=== PATIENT | female | born 1955 | race Caucasian/White ===

== ENCOUNTER 2022-02-17 07:25 | Outpatient (CLI) | payer MEDICARE, OTHER, SELFPAY ==
--- NOTE | 2022-02-17 08:00 | CRLHL7_ITS ---
For Patients: As a result of the Century Cures Act, medical imaging exams and procedure reports are released immediately into your electronic medical record. You may view this report before your referring provider. If you have questions, please contact your health care provider. Indication: FOLLOW UP LUNG CANCER Technique: Postcontrast CT chest, abdomen and pelvis. Oral water. 95 cc Isovue 370 intravenous contrast. Please note that all CT scans at this facility use dose modulation, iterative reconstruction, and/or weight-based dosing when appropriate to reduce radiation dose to as low as reasonably achievable. Comparison: CT chest 07/22/2021, 04/22/2021. CT chest, abdomen pelvis 06/04/2020. CT PET 02/14/2021 Findings: In the chest, chronic linear subsegmental scarring within the right upper lobe. Stable nodular density within the left lung apex. Changes of COPD/emphysema. Mild dependent atelectasis/scarring. No pleural effusion. No intrinsic osseous lesion. Thoracic inlet is normal. No adenopathy. Mild multilevel degenerative changes. No fracture. In the abdomen, diffuse fatty infiltration of the liver is present. Focus of decreased attenuation within the liver adjacent to the falciform ligament is present and, in retrospect, unchanged compared to prior studies, representing focal fat deposition. No suspicious intrahepatic mass. Stable 1 cm splenic cyst anteriorly. Adrenal glands normal. The pancreas is normal. Gallbladder is unremarkable. No solid renal mass or hydronephrosis. Vascular calcifications are present. Small hiatal hernia. No aortic aneurysm. No retroperitoneal or mesenteric adenopathy. In the pelvis, the bladder is normal. Chronic sigmoid diverticulosis. No bowel obstruction or free air. No free fluid or abscess. Normal appendix. No pelvic or inguinal adenopathy. The ureters are within normal limits. Degenerative disc disease at L5-S1. No fracture. No suspicious osseous lesion. Impression: Stable exam. No change from prior studies. No evidence of metastatic disease. Please note that all CT scans at this facility use dose modulation, iterative reconstruction, and/or weight-based dosing when appropriate to reduce radiation dose to as low as reasonably achievable. Dictated by Eddie Lira MD @ 02/17/2022 11:15:47 AM (Electronically Signed)
[2022-02-17 08:01] LABS: Basophils Percent Auto 0.5 % (0.0-3.0); Eosinophils Percent Auto 2.1 % (0.0-7.0); Hematocrit 41.1 % (33.0-51.0); Hemoglobin* 13.8 gm/dL (12.0-16.0); Immature Granulocytes Pct Auto 0.2 %; Lymphocytes Percent Auto 27.3 % (20-44); Mean Corpuscular HGB Conc 34 gm/dL (32-36); Mean Corpuscular Hemoglobin 32 pg (26-34); Mean Corpuscular Volume 94 fL (80-100); Monocytes Percent Auto 8.3 % (0.0-11.0); Neutrophils Percent Auto 61.6 % (42.0-72.0); Platelet Count* 264 K/uL (140-440); RDW Coefficient of Variation % 12.7 % (11.5-15.5); Red Blood Count 4.38 m/uL (4.00-5.20); White Blood Count* 4.22 K/uL (4.50-11.00)
[2022-02-17 08:03] LABS: Slide Review Reflex No
[2022-02-17 08:11] LABS: Chloride* 107 mmol/L (96-114)
[2022-02-17 08:12] LABS: Albumin* 4.6 g/dL (3.3-5.0); Sodium* 140 mmol/L (135-149)
[2022-02-17 08:13] LABS: Potassium* 4.6 mmol/L (3.6-5.1)
[2022-02-17 08:15] LABS: Alanine Aminotransferase* 34 U/L (4-35); Alkaline Phosphatase* 106 U/L (40-150); Aspartate Amino Transferase* 26 U/L (12-35); Bilirubin Total* 0.8 mg/dL (0.1-1.5); Blood Urea Nitrogen* 21 mg/dL (7-30); Carbon Dioxide* 25 mmol/L (20-32); Creatinine* 0.8 mg/dL (0.5-1.5); Estimated Glomerular Filt Rate 82 ml/min; Glucose* 102 mg/dL (60-115); Total Protein* 7.5 g/dL (6.0-8.3)
[2022-02-17 08:16] LABS: Calcium* 9.9 mg/dL (8.4-10.6)
== END 2022-02-17 07:26 | disposition home or self-care (01) ==
LOC: CT 07:29
PROVIDERS: Clinical Nurse Specialist; PCP Family Medicine; Visit Provider Internal Medicine Hematology & Oncology
DX: C34.10 Malignant neoplasm of upper lobe, unspecified bronchus or lung (principal)
CPT/HCPCS: 36415; 71260; 74177; 80053; 85025; Q9967

== ENCOUNTER 2022-03-03 08:10 | Outpatient (RCR) | payer MEDICARE, OTHER, SELFPAY | END 2022-08-30 23:59 | disposition home or self-care (01) | LOC: CCIC 08:10 | PROVIDERS: PCP Family Medicine; Visit Provider Physician Assistant | DX: C34.11 Malignant neoplasm of upper lobe, right bronchus or lung (principal); E03.9 Hypothyroidism, unspecified; R06.09 Other forms of dyspnea | CPT/HCPCS: 99212; 99214 ==

== ENCOUNTER 2022-09-22 07:11 | Outpatient (CLI) | payer MEDICARE, OTHER, SELFPAY ==
[2022-09-22 07:50] LABS: Creatinine* 0.9 mg/dL (0.5-1.5); Estimated Glomerular Filt Rate 71 ml/min
--- NOTE | 2022-09-22 08:00 | CRLHL7_ITS ---
For Patients: As a result of the Century Cures Act, medical imaging exams and procedure reports are released immediately into your electronic medical record. You may view this report before your referring provider. If you have questions, please contact your health care provider. Indication : monitor stage IIIA NSCLC, MALIGNANT NEOPLASM OF UPPER LOBE OF RT LUNG Technique: Postcontrast CT chest, abdomen and pelvis. 96 cc Isovue 370 intravenous contrast. Please note that all CT scans at this facility use dose modulation, iterative reconstruction, and/or weight-based dosing when appropriate to reduce radiation dose to as low as reasonably achievable. Comparison: 02/17/2022 Findings: In the chest, postop changes to the right upper lung again noted. Stable nodular density within the left lung apex. COPD/emphysema. Dependent atelectasis. No pleural effusion or pulmonary edema. No infiltrate. No mediastinal, hilar or axillary adenopathy. Atherosclerotic disease. Curvature of the spine. No fracture. In the abdomen, there is a stable benign focus of hypodensity posterior segment right hepatic lobe corresponding to known intrahepatic hemangioma. Focal fat deposition within the liver adjacent to the falciform ligament is present. Diffuse hepatic steatosis also noted. No calcified gallstones. No biliary obstruction. Pancreas is normal. Normal spleen. Adrenal glands are unremarkable. Extrarenal pelvis on the right. No solid renal mass or hydronephrosis. Atherosclerotic changes. No aneurysm. No retroperitoneal or mesenteric adenopathy. Small hiatal hernia is present. In the pelvis, the bladder is normal. Sigmoid diverticulosis is present. No bowel obstruction or free air. No free fluid. Appendix normal. No pelvic or inguinal adenopathy. Degenerative disc disease L5-S1. No fracture. No intrinsic osseous lesion. Impression: Chronic and unchanged nodular density in the left lung apex and intrahepatic hemangioma. No evidence of metastatic disease. Please note that all CT scans at this facility use dose modulation, iterative reconstruction, and/or weight-based dosing when appropriate to reduce radiation dose to as low as reasonably achievable. Dictated by Eddie Lira MD @ 09/22/2022 9:19:00 AM (Electronically Signed)
== END 2022-09-22 07:12 | disposition home or self-care (01) ==
PROVIDERS: PCP Family Medicine; Visit Provider Physician Assistant
DX: C34.11 Malignant neoplasm of upper lobe, right bronchus or lung (principal)
CPT/HCPCS: 36415; 71260; 74177; 82565; Q9967

== ENCOUNTER 2022-09-23 08:04 | Outpatient (RCR) | payer MEDICARE, OTHER, SELFPAY | END 2023-03-22 23:59 | disposition home or self-care (01) | LOC: CCIC 08:04 | PROVIDERS: PCP Family Medicine; Referring Provider Family Medicine; Visit Provider Internal Medicine Hematology & Oncology | DX: C34.11 Malignant neoplasm of upper lobe, right bronchus or lung (principal); E03.9 Hypothyroidism, unspecified; R06.09 Other forms of dyspnea | CPT/HCPCS: 99212; 99213; 99214 ==

== ENCOUNTER 2023-04-14 08:30 | Outpatient (RCR) | payer MEDICARE, OTHER, SELFPAY ==
[2023-04-13 07:49] LABS: Creatinine* 0.8 mg/dL (0.5-1.5); Estimated Glomerular Filt Rate 82 ml/min
[2023-04-13 08:44] LABS: Albumin* 4.4 g/dL (3.3-5.0); Chloride* 104 mmol/L (96-114); Potassium* 4.8 mmol/L (3.6-5.1); Sodium* 138 mmol/L (135-149)
[2023-04-13 08:47] LABS: Alanine Aminotransferase* 28 U/L (4-35); Alkaline Phosphatase* 91 U/L (40-150); Anion Gap 9 mEq/L (7-15); Aspartate Amino Transferase* 24 U/L (12-35); Bilirubin Total* 0.8 mg/dL (0.1-1.5); Blood Urea Nitrogen* 28 mg/dL (7-30); Carbon Dioxide* 25 mmol/L (20-32); Creatinine* 0.8 mg/dL (0.5-1.5); Estimated Glomerular Filt Rate 82 ml/min; Glucose* 119 mg/dL (60-115); Total Protein* 7.6 g/dL (6.0-8.3)
[2023-04-13 08:48] LABS: Calcium* 9.9 mg/dL (8.4-10.6)
[2023-04-14 08:20] LABS: Basophils Absolute Auto 0.02 K/uL (0.00-0.30); Basophils Percent Auto 0.4 % (0.0-3.0); Eosinophils Absolute Auto 0.12 K/uL (0.00-0.50); Eosinophils Percent Auto 2.6 % (0.0-7.0); Hematocrit 40.1 % (33.0-51.0); Hemoglobin* 13.2 gm/dL (12.0-16.0); Immature Granulocytes Abs Auto 0.01 K/uL (0.00-0.30); Immature Granulocytes Pct Auto 0.2 %; Lymphocytes Absolute Auto 1.45 K/uL (0.90-2.90); Lymphocytes Percent Auto 31.7 % (20-44); Mean Corpuscular HGB Conc 33 gm/dL (32-36); Mean Corpuscular Hemoglobin 32 pg (26-34); Mean Corpuscular Volume 96 fL (80-100); Monocytes Percent Auto 8.7 % (0.0-11.0); Neutrophils Absolute Auto 2.58 K/uL (1.7-7.0); Neutrophils Percent Auto 56.4 % (42.0-72.0); Platelet Count* 275 K/uL (140-440); RDW Coefficient of Variation % 12.6 % (11.5-15.5); Red Blood Count 4.19 m/uL (4.00-5.20); White Blood Count* 4.58 K/uL (4.50-11.00)
[2023-04-14 08:23] LABS: Slide Review Reflex No
--- NOTE | 2023-08-28 12:21 | ONC.NURNOTE ---
Pt called today requesting Oncology to place a referral to medical oncology in [facility]. Pt has moved and does not plan on returning to [facility]. Phone # is , fax # .
== END 2023-10-10 23:59 | disposition home or self-care (01) ==
LOC: CCIC 08:30
PROVIDERS: PCP Family Medicine; Referring Provider Family Medicine; Visit Provider Internal Medicine Hematology & Oncology
DX: C34.11 Malignant neoplasm of upper lobe, right bronchus or lung; E03.9 Hypothyroidism, unspecified; R06.09 Other forms of dyspnea
CPT/HCPCS: 36415; 71260; 74177; 80053; 82565; 85025; 99213; 99214; G0463; Q9967